=== PATIENT | female | born 1945 | race Two or more races ===

== ENCOUNTER 2019-08-25 18:35 | Emergency (ER) | payer OTHER ==
[~2019-08-25] VITALS: Ht 165.1 cm; Wt 55.3 kg
[2019-08-25] MEDS ORDERED: RELAFEN DS1000 MG (18:47)
== END 2019-08-26 09:53 | disposition home or self-care (01) ==
LOC: ER 18:35
DX: K29.70 Gastritis, unspecified, without bleeding (principal); K59.09 Other constipation; R10.84 Generalized abdominal pain